=== PATIENT | female | born 1980 | race Caucasian/White ===

== ENCOUNTER 2016-10-07 21:13 | Emergency (ER) | payer BC ==
--- OUTSIDE RECORDS SUMMARY | 2016-10-07 21:50 | XMS REPORT | Continuity of Care Document ---
:1980 Author Organization [facility] [place] [address] Care Team Providers Name Role Phone Unavailable Primary Care Provider Unavailable Source Comments This disclosure is being made pursuant to the Glow program and maynot contain all information available regarding this patient.[facility] Active Allergies and Adverse Reactions Not on File Current Medications Be aware that medications may not be up to date as of this document. Alwaysverify current medications with the patient. Not on file Active Problems Not on file Social History Tobacco Use Types Packs/Day Years Used Date Never Assessed Plan of Care Health Maintenance Due Date Last Done Comments Retired-Pertussis Vaccine Adult 2001 Retired-Tetanus Vaccine Adult 2001 Pap Smear 10/08/2003 Retired-INFLUENZA VACCINE 04/01/2015 Results from Last 3 Months Not on file
--- OUTSIDE RECORDS SUMMARY | 2016-10-07 21:51 | XMS REPORT | Continuity of Care Document ---
:1980 Author Organization [facility] ([facility]) Address [address] [place] [address] Phone [phone] Care Team Providers Name Role Phone Paul Silva Primary Care Provider [phone] Source Comments This disclosure is being made pursuant to the Care Everywhere program, applicable federal and state laws, and may not contain all informaitonavailable regarding this patient.[facility] ([facility]) Active Allergies and Adverse Reactions Allergen Noted Date Severity Reactions Comments Penicillins 06/03/2014 Urticaria (Hives),Rash Sulfa (Sulfonamide Antibiotics) 06/03/2014 Urticaria (Hives),Rash Current Medications Prescription Sig. Disp. Refills Start Date End Date Status zolpiDEM 10 mg tablet Take 10 mg by mouth Active at bedtime as needed. amitriptyline 25 mg Take 25-50 mg by Active tablet mouth at bedtime. gabapentin 300 mg capsule Take 1,200 mg by Active mouth daily. buPROPion (WELLBUTRIN XL) Take 150 mg by Active 300 mg extended release mouth 2 times tablet 24 hour daily. OMEPRAZOLE (PRILOSEC PO) Take 40 mg by mouth Active daily. ferrous sulfate (Iron) Take 325 mg by Active 325 mg (65 mg iron) mouth daily. tablet loratadine 10 mg tablet Take 10 mg by mouth Active daily. CALCIUM CARBONATE/VITAMIN Take 1 Tab by mouth Active D3 (CALCIUM 600 + D,3, 2 times daily. PO) MULTIVIT WITH Take by mouth. Active CALCIUM,IRON,MIN (WOMEN'S MULTIPLE VITAMINS PO) Active Problems Problem Noted Date Mid back pain 06/04/2014 Social History Tobacco Use Types Packs/Day Years Used Date Current Every Day Smoker Cigarettes 1 Smokeless Tobacco: Never Used Last Filed Vital Signs Vital Sign Reading Time Taken Blood Pressure 115/77 06/03/2014 2:00 PM [facility] Pulse 82 06/03/2014 2:00 PM [facility] Temperature 36 C (96.8 F) 06/03/2014 2:00 PM [facility] Respiratory Rate - - Height 1.549 m (5' 0.98") 06/03/2014 2:00 PM [facility] Weight 60.918 kg (134 lb 4.8 oz) 06/03/2014 2:00 PM [facility] Body Mass Index 25.39 06/03/2014 2:00 PM [facility] Oxygen Saturation - - Plan of Care Health Maintenance Due Date Last Done Comments Hepatitis B Vaccine (1 of 3 - Primary Series) 1982 Tdap Vaccine 1993 Lipid Disorder Screening 2000 MMR Vaccine 2000 Td Vaccine 2000 Varicella Vaccine (1 of 2 - Adult - No Evidence of 2000 Immunity) Pneumococcal Vaccine (1 of 1 - PPSV23) 2001 Cervical Cancer Screening 2012 Influenza Vaccine: Seasonal (#1) 03/01/2016 Results from Last 3 Months Not on file
--- OUTSIDE RECORDS SUMMARY | 2016-10-07 21:51 | XMS REPORT | Summary of Care ---
:1980 Author Organization [facility] Address [address] [place] [address] [address] [place] [address] Care Team Providers Name Role Phone Lisha Hung Primary Care Physician Encounter Date(s): 08/18/16 - 08/18/16 [facility] [address] [place] [address] [address] [place] [address]- Discharge Diagnosis: Epigastric abdominal pain Discharge Disposition: 01 Discharged to Home or Self Care Attending Physician: MAKAYLA Mccullough Referring Physician: Doug Veliz DO Vital Signs Most recent to oldest [Reference Range]: 1 Peripheral Pulse Rate [60-100 bpm] 101 bpm *HI* (08/18/16 1:13 PM) Blood Pressure [90-130/60-90 mmHg] 106/73mmHg (08/18/16 1:13 PM) Mean Arterial Pressure, Cuff 84 mmHg (08/18/16 1:13 PM) Height/Length Measured 154.1 cm (08/18/16 1:13 PM) Height/Length Estimated 154.7 cm (08/18/16 1:13 PM) Weight Estimated 43.4 kg (08/18/16 1:13 PM) Weight Dosing 43.4 kg (08/18/16 1:13 PM) Weight Measured 43.4 kg (08/18/16 1:13 PM) BSA Measured 1.38 m2 (08/18/16 1:13 PM) BSA Estimated 1.37 m2 (08/18/16 1:13 PM) Body Mass Index Measured 18.28 kg/m2 (08/18/16 1:13 PM) Body Mass Index Estimated 18.13 kg/m2 (08/18/16 1:13 PM) Problem List Condition Effective Dates Status Health Status Informant History of depression(Confirmed) 02/13/13 Active History of endometriosis(Confirmed) 2002 Active History of gastro-esophageal reflux Active disease(Confirmed) History of migraine(Confirmed) Active Neck pain(Confirmed) Active History of ovarian cyst(Confirmed) Active (Confirmed) 03/09/04 - 12/07/04 Resolved Weakness of neck(Confirmed) Active Allergies, Adverse Reactions, Alerts Substance Reaction Severity Status penicillin Hives Active sulfa drugs Hives Active Medications Adderall 30 mg oral tablet 1 tab(s), Oral, BID, 0 Refill(s), Start Date: 07/14/16 13:25:00 SERVICE TECH/WELDER Start Date: 07/14/16 Status: Orderedalbuterol HFA 2 puff(s), Nasal, q8hr interval, PRN as needed for wheezing, Start Date: 10:30:00 CDT Start Date: 02/25/14 Stop Date: 08/18/15 Status: CompletedAleve 220 mg oral tablet 2 tab(s), Oral, BID Start Date: 02/25/14 Stop Date: 02/05/15 Status: CompletedAmbien 10 mg, Oral, HS, 0 Refill(s), Start Date: 02/25/14 14:45:00 CDT Start Date: 02/25/14 Stop Date: 08/22/15 Status: DiscontinuedCarafate 1 g oral tablet 1 tab(s), Oral, TID, with meals, # 240 tab(s), 0 Refill(s), Start Date: 9:42:00 CDT Start Date: 02/05/15 Stop Date: 10/16/15 Status: DiscontinuedCarafate 1 g oral tablet 1 tab(s), Oral, QID, on an empty stomach, # 120 tab(s), 1 Refill(s), Start Date : 08/18/16 13:33:00 SERVICE TECH/WELDER, [facility] [facility] [place] [place] Start Date: 08/18/16 Status: OrderedCeleXA 20 mg oral tablet 1 tab(s), Oral, Daily, # 90 tab(s), 0 Refill(s), Start Date: 02/05/15 9:42:00 CDT Start Date: 02/05/15 Status: OrderedClaritin 10 mg, Oral, Daily Start Date: 02/25/14 Stop Date: 08/18/15 Status: Discontinueddextroamphetamine-amphetamine 30 mg oral tablet 1 tab(s), Oral, BID, 0 Refill(s), Start Date: 06/12/15 13:47:00 SERVICE TECH/WELDER Start Date: 06/12/15 Stop Date: 12/15/15 Status: DiscontinuedEffexor XR 75 mg oral capsule, extended release 1 cap(s), Oral, Daily, 0 Refill(s), Start Date: 09/23/14 8:35:00 SERVICE TECH/WELDER Start Date: 09/23/14 Stop Date: 02/05/15 Status: Completedfamotidine 40 mg oral tablet 1 tab(s), Oral, BID, # 60 tab(s), 1 Refill(s), Start Date: 08/18/16 13:34:00 SERVICE TECH/WELDER , [facility] [place] [place] Start Date: 08/18/16 Status: OrderedFlagyl 250 mg oral tablet 1 tab(s), Oral, TID, do not drink alcohol may take with food to minimize abdominal discomfort, # 42 tab(s), 0 Refill(s), Start Date: 07/14/16 13:32:00 SERVICE TECH/WELDER, [facility] [place], [place] Start Date: 07/14/16 Stop Date: 07/28/16 Status: OrderedFlonase 50 mcg/inh nasal spray 1 spray(s), Nasal, Daily Start Date: 02/25/14 Stop Date: 06/11/15 Status: DiscontinuedFlorastor 250 mg oral capsule 2 cap(s), Oral, BID, # 56 cap(s), 0 Refill(s), Start Date: 08/21/15 14:57:00 SERVICE TECH/WELDER , Pharmacy: [facility] [id number] Start Date: 08/21/15 Stop Date: 09/15/15 Status: Completedgabapentin 300 mg oral capsule 1 cap(s), Oral, TID Start Date: 02/25/14 Stop Date: 02/05/15 Status: Completedibuprofen 600 mg oral tablet 1 tab(s), Oral, q6hr, # 16 tab(s), 2 Refill(s), Start Date: 11/02/15 9:03:00 CDT , Pharmacy: [facility] [id number] Start Date: 11/02/15 Status: OrderedLevaquin 750 mg oral tablet 1 tab(s), Oral, Daily, # 14 tab(s), 0 Refill(s), Start Date: 07/14/16 13:24:00 SERVICE TECH/WELDER Start Date: 07/14/16 Stop Date: 07/28/16 Status: OrderedLORazepam 0.5 mg oral tablet 2 tab(s), Oral, HS, 0 Refill(s), Start Date: 07/14/16 13:26:00 SERVICE TECH/WELDER Start Date: 07/14/16 Status: Orderedmethadone 10 mg oral tablet 1 tab(s), Oral, q12hr, # 14 tab(s), 0 Refill(s), Start Date: 06/27/15 9:27:00 SERVICE TECH/WELDER, other reason (Rx) Start Date: 06/27/15 Stop Date: 08/18/15 Status: Completedmetoclopramide 10 mg oral tablet 1 tab(s), Oral, QID, # 120 tab(s), 0 Refill(s), Start Date: 08/14/15 15:28:00 SERVICE TECH/WELDER Start Date: 08/14/15 Stop Date: 08/21/15 Status: DiscontinuedmetroNIDAZOLE 500 mg oral tablet 1 tab(s), Oral, TID, 0 Refill(s), Start Date: 08/18/15 17:01:00 SERVICE TECH/WELDER Start Date: 08/18/15 Stop Date: 08/21/15 Status: DiscontinuedMultiple Vitamins oral tablet 1 tab(s), Oral, Daily, with food Start Date: 02/25/14 Stop Date: 02/05/15 Status: CompletedNorco 5 mg-325 mg oral tablet See Instructions, 1tab(s) Oral q4-6hr interval prn pain. WRITTEN RX, PT TO MORTGAGE PROCESSOR//VOLODYMYRP, # 90 tab(s), 0 Refill(s), Start Date: 07/28/15 9:12:00 SERVICE TECH/WELDER Start Date: 07/28/15 Stop Date: 08/18/15 Status: Completednortriptyline 10 mg oral capsule 2 cap(s), Oral, HS Start Date: 02/25/14 Stop Date: 02/05/15 Status: Completedomeprazole 40 mg oral delayed release capsule 1 cap(s), Oral, Daily, before a meal Start Date: 02/25/14 Stop Date: 08/18/15 Status: CompletedOrtho Tri-Cyclen oral tablet 1 tab(s), Oral, Daily, # 28 tab(s), 11 Refill(s), Start Date: 09/23/14 8:50:32 SERVICE TECH/WELDER, Pharmacy: [id number] Start Date: 09/23/14 Stop Date: 10/28/15 Status: DiscontinuedOrtho Tri-Cyclen oral tablet 1 tab(s), Oral, Daily, # 28 tab(s), 6 Refill(s), [id number] Start Date: 02/25/14 Stop Date: 09/23/14 Status: DiscontinuedoxyCODONE-acetaminophen 5 mg-325 mg oral tablet See Instructions, 1 tab(s) Oral q4-6hr interval Max 7 per day, # 90 tab(s), 0 Refill(s), Start Date: 06/27/15 9:28:00 SERVICE TECH/WELDER, other reason (Rx) Start Date: 06/27/15 Stop Date: 07/28/15 Status: DiscontinuedPercocet 10/325 1 tab(s), Oral, q6hr interval, 0 Refill(s) Start Date: 06/11/15 Stop Date: 06/27/15 Status: DiscontinuedPercocet 5/325 tab(s), Oral, q6hr interval, 0 Refill(s) Start Date: 02/25/14 Stop Date: 06/11/15 Status: DiscontinuedPercocet 5/325 tab(s), Oral, q6hr interval, 0 Refill(s) Start Date: 02/25/14 Stop Date: 02/25/14 Status: DiscontinuedPercocet 5/325 1 tab(s), Oral, QID, 0 Refill(s), Start Date: 08/18/15 16:59:00 SERVICE TECH/WELDER Start Date: 08/18/15 Stop Date: 09/15/15 Status: CompletedPercocet 5/325 oral tablet 1 tab(s), Oral, QID, # 90 tab(s), 0 Refill(s), Start Date: 09/09/15 11:26:00 SERVICE TECH/WELDER , other reason (Rx) Start Date: 09/09/15 Stop Date: 09/26/15 Status: CompletedPercocet 5/325 oral tablet 1 tab(s), Oral, q6hr interval, PRN pain moderate 4-7, # 24 tab(s), 0 Refill(s), Start Date: 11/05/15 11:38:54 CDT, Pharmacy: [facility] [id number] Start Date: 11/05/15 Stop Date: 11/09/15 Status: CompletedPercocet 5/325 oral tablet 1 tab(s), Oral, QID, Written Rx for pt to pickle maker//jmp,cage unloader, # 90 tab(s), 0 Refill(s), Start Date: 09/26/15 12:54:36 SERVICE TECH/WELDER Start Date: 09/26/15 Stop Date: 10/16/15 Status: DiscontinuedPercocet 5/325 oral tablet 1 tab(s), Oral, q6hr interval, PRN pain moderate 4-7, # 16 tab(s), 0 Refill(s), Start Date: 11/02/15 9:03:00 CDT, Pharmacy: [facility] [id number] Start Date: 11/02/15 Stop Date: 11/05/15 Status: DiscontinuedPhenergan 25 mg oral tablet 1 tab(s), Oral, q4hr, PRN for nausea/vomiting, # 20 tab(s), 0 Refill(s), Start Date: 08/21/15 14:58:00 SERVICE TECH/WELDER, Pharmacy: [facility] [id number] Start Date: 08/21/15 Stop Date: 09/15/15 Status: Completedpotassium chloride 10 mEq oral capsule, extended release 1 cap(s), Oral, BID, # 180 cap(s), 0 Refill(s), Start Date: 08/18/15 17:01:00 SERVICE TECH/WELDER Start Date: 08/18/15 Stop Date: 09/15/15 Status: Completedpotassium chloride 10 mEq oral tablet, extended release 1 tab(s), Oral, BID, # 180 tab(s), 0 Refill(s), Start Date: 08/18/15 21:44:00 SERVICE TECH/WELDER Start Date: 08/18/15 Stop Date: 08/21/15 Status: DiscontinuedSingulair qPM, 0 Refill(s) Start Date: 02/25/14 Stop Date: 06/11/15 Status: DiscontinuedSuprep Bowel Prep Kit oral liquid 1 bottles, Oral, BID, Mix 1 btl to 16oz water and drink. Next morning; repeat use second btl. Complete at least 1 hr before colonscopy., # 1 kit(s), 0 Refill (s), Start Date: 08/14/15 15:51:00 SERVICE TECH/WELDER, Pharmacy: [facility] [id number] Start Date: 08/14/15 Stop Date: 08/18/15 Status: CompletedtraZODone 50 mg oral tablet 1 tab(s), Oral, HS, # 60 tab(s), 1 Refill(s), Pharmacy: [id number] Start Date: 11/29/13 Stop Date: 02/05/15 Status: CompletedValium 10 mg oral tablet See Instructions, PRN for anxiety, 1 tab(s) Oral 30 minutes prior to procdure, # 1 tab(s), 0 Refill(s), Start Date: 02/04/15 15:17:00 CDT, called to pharmacy ( Rx) Start Date: 02/04/15 Stop Date: 06/11/15 Status: Completedvancomycin 125 mg oral capsule 1 cap(s), Oral, QID, # 40 cap(s), 0 Refill(s), Start Date: 08/21/15 14:57:00 SERVICE TECH/WELDER , Pharmacy: [facility] [id number] Start Date: 08/21/15 Stop Date: 08/22/15 Status: Discontinuedvancomycin 125 mg oral capsule 1 cap(s), Oral, q6hr, # 40 cap(s), 0 Refill(s), Start Date: 08/21/15 10:49:00 SERVICE TECH/WELDER, Pharmacy: [facility] [id number] Start Date: 08/21/15 Stop Date: 09/15/15 Status: CompletedVentolin HFA 2 puff(s), Inhale, q6hr interval, 0 Refill(s), Start Date: 07/14/16 13:27:00 SERVICE TECH/WELDER Start Date: 07/14/16 Status: OrderedVyvanse 70 mg, Oral, qAM, 0 Refill(s), Start Date: 05/27/15 10:27:00 CDT Start Date: 05/27/15 Stop Date: 08/18/15 Status: DiscontinuedVyvanse 40 mg oral capsule 1 cap(s), Oral, qAM, 0 Refill(s), Start Date: 07/14/16 13:24:00 SERVICE TECH/WELDER Start Date: 07/14/16 Status: OrderedWellbutrin XL 150 mg/24 hours oral tablet, extended release tab(s), Oral, q24hr interval, 0 Refill(s) Start Date: 02/25/14 Stop Date: 02/05/15 Status: CompletedZofran 4 mg oral tablet 1 tab(s), Oral, q8hr, PRN nausea/vomiting, # 10 tab(s), 1 Refill(s), Start Date : 09/25/15 13:09:00 SERVICE TECH/WELDER, Pharmacy: [facility] [id number] Start Date: 09/25/15 Stop Date: 10/16/15 Status: DiscontinuedZofran 4 mg oral tablet 1 tab(s), Oral, q8hr interval, PRN nausea/vomiting, # 8 Tab-Dis, 0 Refill(s), Start Date: 09/15/15 11:45:00 SERVICE TECH/WELDER, Pharmacy: [facility] [id number] Start Date: 09/15/15 Stop Date: 10/16/15 Status: Discontinued Results No data available for this section Immunizations Given and Recorded Vaccine Date Status Refusal Reason human papillomavirus vaccine 08/21/07 Recorded human papillomavirus vaccine 04/18/07 Recorded human papillomavirus vaccine 02/15/07 Recorded influenza virus vaccine, inactivated 06/28/09 Recorded Procedures Procedure Date Related Diagnosis Body Site Hysterectomy Abdominal Total With BSO (SCIP)1 10/31/15 Colonoscopy2 09/18/15 Esophagogastroduodenoscopy3 08/19/15 Fusion Thoracic Posterior (SCIP)4 06/25/15 Implantation of neurostimulator in spine5 09/09/14 Arthroscopy of shoulder (LEFT) 09/2012 Appendectomy 08/2012 Colposcopy6 07/31/12 Breast augmentation 11/10/10 Tonsillectomy and adenoidectomy 2007 Diagnostic laparoscopy 05/19/07 Colposcopy7 04/28/05 Extraction of wisdom tooth 01/2005 section 12/07/04 Laparoscopy with ablation (endometriosis) 2001 1auto-populated from documented surgical [id number] from documented surgical [id number] from documented surgical [id number] from documented surgical [id number] A) CERVICAL BIOPSY: 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 B) ENDOCERVIX, BIOPSY: ENOD AND ECTOCERVICAL TISSUE WITH CHRONIC CERVICITIS, FRAGMENTS OF SMALL ENDOCERVICAL POLYP, AND FRAGEMENTS OF LOWER UTERINE SEGMENT ENDOMETRIUM COMMENTS: DIAGNOSTIC DYSPLASIA IS NOT IDENTIFIED, AND FOCAL MILD KOILOCYSTIC CHANGE IS NOTED ONLY IN THE CERVICAL BIOPSY. ADDITONAL FINDINGSINCLUDE FOCAL AREAS OF IMMATURE SQUAMOUS METAPLASIA Social History No data available for this section Assessment and Plan No data available for this section
--- OUTSIDE RECORDS SUMMARY | 2016-10-07 21:52 | XMS REPORT | Summary of Care ---
:1980 Author Organization [facility] Address [address] [place] [address] Care Team Providers Name Role Phone Shannon Jackson Primary Care Physician Encounter Date(s): 09/20/16 - 09/20/16 [facility], [address] [place], [place] [address] Discharge Disposition: 01 Discharged to Home or Self Care Attending Physician: MAKAYLA Hargrove Referring Physician: MAKAYLA Hargrove Vital Signs Most recent to oldest [Reference Range]: 1 Temperature Tympanic [36.6-38.1 DegC] 36.9 DegC (09/20/16 8:16 AM) Temperature C to F 98.4 (09/20/16 8:16 AM) Peripheral Pulse Rate [60-100 bpm] 110 bpm *HI* (09/20/16 8:16 AM) SpO2 [90-100 %] 95 % (09/20/16 8:16 AM) SpO2 Location Right hand (09/20/16 8:16 AM) Blood Pressure [90-130/60-90 mmHg] 118/72mmHg (09/20/16 8:16 AM) Mean Arterial Pressure, Cuff 87 mmHg (09/20/16 8:16 AM) Most recent to oldest [Reference Range]: 1 Height/Length Measured 154.1 cm (09/20/16 8:16 AM) Weight Dosing 44.70 kg1 (09/20/16 8:20 AM) Weight Measured 44.7 kg (09/20/16 8:16 AM) BSA Measured 1.39 m2 (09/20/16 8:16 AM) Body Mass Index Measured 18.82 kg/m2 (09/20/16 8:16 AM) 1Result Comment: This result was because the dosing weight was either not entered or it is>30 days old. This result is based off: Weight Measured September 20, 2016 08:16:00 PLUMBING ASSEMBLER by Helen Nieto Problem List Condition Effective Dates Status Health Status Informant History of depression(Confirmed) 02/13/13 Active History of endometriosis(Confirmed) 2001 Active History of gastro-esophageal reflux Active disease(Confirmed) History of migraine(Confirmed) Active Neck pain(Confirmed) Active History of ovarian cyst(Confirmed) Active (Confirmed) 03/09/04 - 12/07/04 Resolved Weakness of neck(Confirmed) Active Allergies, Adverse Reactions, Alerts Substance Reaction Severity Status penicillin Hives Active sulfa drugs Hives Active Medications Adderall 30 mg oral tablet 1 tab(s), Oral, BID, 0 Refill(s), Start Date: 07/14/16 13:25:00 PLUMBING ASSEMBLER Start Date: 07/14/16 Status: Orderedalbuterol HFA 2 [...] tab(s), 0 Refill(s), Start Date: 9:42:00 CDT Special Instructions: with meals Start Date: 02/05/15 Stop Date: 10/16/15 Status: DiscontinuedCarafate 1 g oral tablet 1 tab(s), Oral, QID, on an empty stomach, # 120 tab(s), 1 Refill(s), Start Date : 08/18/16 13:33:00 PLUMBING ASSEMBLER, Pharmacy: [facility] [place], [place] Special Instructions: on an empty stomach Start Date: 08/18/16 Status: OrderedCeleXA 20 mg oral tablet 1 tab(s), Oral, Daily, # 90 tab(s), 0 Refill(s), Start Date: 02/05/15 9:42:00 CDT Start Date: 02/05/15 Status: OrderedClaritin 10 mg, Oral, Daily Start Date: 02/25/14 Stop Date: 08/18/15 Status: Discontinueddextroamphetamine-amphetamine 30 mg oral tablet 1 tab(s), Oral, BID, 0 Refill(s), Start Date: 06/12/15 13:47:00 PLUMBING ASSEMBLER Start Date: 06/12/15 Stop Date: 12/15/15 Status: Discontinueddicyclomine 20 mg oral tablet 1 tab(s), Oral, QID, Can be taken 30 to 60 minutes before meals, # 60 tab(s), 0 Refill(s), Start Date: 09/17/16 13:44:00 PLUMBING ASSEMBLER, [facility] [place] Special Instructions: Can be taken 30 to 60 minutes before meals Start Date: 09/17/16 Status: OrderedEffexor XR 75 mg oral capsule, extended release 1 cap(s), Oral, Daily, 0 Refill(s), Start Date: 09/23/14 8:35:00 PLUMBING ASSEMBLER Start Date: 09/23/14 Stop Date: 02/05/15 Status: Completedfamotidine 40 mg oral tablet 1 tab(s), Oral, BID, # 60 tab(s), 1 Refill(s), Start Date: 08/18/16 13:34:00 PLUMBING ASSEMBLER , [place]acy: [place] Start Date: 08/18/16 Stop Date: 09/20/16 Status: DiscontinuedFlagyl 250 mg oral tablet 1 tab(s), Oral, TID, do not drink alcohol may take with food to minimize abdominal discomfort, # 42 tab(s), 0 Refill(s), Start Date: 07/14/16 13:32:00 PLUMBING ASSEMBLER, Pharmacy: [facility] [place], [place] Special Instructions: do not drink alcohol may take with food to minimize abdominal discomfort Start Date: 07/14/16 Stop Date: 09/17/16 Status: CompletedFlonase 50 mcg/inh nasal spray 1 spray(s), Nasal, Daily Start Date: 02/25/14 Stop Date: 06/11/15 Status: DiscontinuedFlorastor 250 mg oral capsule 2 cap(s), Oral, BID, # 56 cap(s), 0 Refill(s), Start Date: 08/21/15 14:57:00 PLUMBING ASSEMBLER , Pharmacy: [facility] [id number] Start Date: 08/21/15 Stop Date: 09/15/15 Status: Completedgabapentin 300 mg oral capsule 1 cap(s), Oral, TID Start Date: 02/25/14 Stop Date: 02/05/15 Status: Completedibuprofen 600 mg oral tablet 1 tab(s), Oral, q6hr, # 16 tab(s), 2 Refill(s), Start Date: 11/02/15 9:03:00 CDT , Pharmacy: [facility] [id number] Start Date: 11/02/15 Status: OrderedLevaquin 750 mg oral tablet 1 tab(s), Oral, Daily, # 14 tab(s), 0 Refill(s), Start Date: 07/14/16 13:24:00 PLUMBING ASSEMBLER Start Date: 07/14/16 Stop Date: 09/17/16 Status: CompletedLORazepam 0.5 mg oral tablet 2 tab(s), Oral, HS, 0 Refill(s), Start Date: 07/14/16 13:26:00 PLUMBING ASSEMBLER Start Date: 07/14/16 Status: Orderedmethadone 10 mg oral tablet 1 tab(s), Oral, q12hr, # 14 tab(s), 0 Refill(s), Start Date: 06/27/15 9:27:00 PLUMBING ASSEMBLER, other reason (Rx) Start Date: 06/27/15 Stop Date: 08/18/15 Status: Completedmetoclopramide 10 mg oral tablet 1 tab(s), Oral, QID, # 120 tab(s), 0 Refill(s), Start Date: 08/14/15 15:28:00 PLUMBING ASSEMBLER Start Date: 08/14/15 Stop Date: 08/21/15 Status: DiscontinuedmetroNIDAZOLE 500 mg oral tablet 1 tab(s), Oral, TID, 0 Refill(s), Start Date: 08/18/15 17:01:00 PLUMBING ASSEMBLER Start Date: 08/18/15 Stop Date: 08/21/15 Status: DiscontinuedMultiple Vitamins oral tablet 1 tab(s), Oral, Daily, with food Special Instructions: with food Start Date: 02/25/14 Stop Date: 02/05/15 Status: CompletedNorco 5 mg-325 mg oral tablet See Instructions, 1tab(s) Oral q4-6hr interval prn pain. WRITTEN RX, PT TO HOG HANDLER//JMP, # 90 tab(s), 0 Refill(s), Start Date: 07/28/15 9:12:00 PLUMBING ASSEMBLER Special Instructions: 1tab(s) Oral q4-6hr interval prn pain. WRITTEN RX, PT TO HOG HANDLER//JMP Start Date: 07/28/15 Stop Date: 08/18/15 Status: Completednortriptyline 10 mg oral capsule 2 cap(s), Oral, HS Start Date: 02/25/14 Stop Date: 02/05/15 Status: Completedomeprazole 40 mg oral delayed release capsule 1 cap(s), Oral, Daily, # 30 cap(s), 1 Refill(s), Start Date: 09/17/16 13:43:00 PLUMBING ASSEMBLER, Pharmacy: [place], [place] Start Date: 09/17/16 Status: Orderedomeprazole 40 mg oral delayed release capsule 1 cap(s), Oral, Daily, before a meal Special Instructions: before a meal Start Date: 02/25/14 Stop Date: 08/18/15 Status: CompletedOrtho Tri-Cyclen oral tablet 1 tab(s), Oral, Daily, # 28 tab(s), 11 Refill(s), Start Date: 09/23/14 8:50:32 PLUMBING ASSEMBLER, Pharmacy: [id number] Start Date: 09/23/14 Stop Date: 10/28/15 Status: DiscontinuedOrtho Tri-Cyclen oral tablet 1 tab(s), Oral, Daily, # 28 tab(s), 6 Refill(s), Pharmacy: [id number] Start Date: 02/25/14 Stop Date: 09/23/14 Status: DiscontinuedoxyCODONE-acetaminophen 5 mg-325 mg oral tablet See Instructions, 1 tab(s) Oral q4-6hr interval Max 7 per day, # 90 tab(s), 0 Refill(s), Start Date: 06/27/15 9:28:00 PLUMBING ASSEMBLER, other reason (Rx) Special Instructions: 1 tab(s) Oral q4-6hr interval Max 7 per day Start Date: 06/27/15 Stop Date: 07/28/15 Status: [...] QID, 0 Refill(s), Start Date: 08/18/15 16:59:00 PLUMBING ASSEMBLER Start Date: 08/18/15 Stop Date: 09/15/15 Status: CompletedPercocet 5/325 oral tablet 1 tab(s), Oral, QID, # 90 tab(s), 0 Refill(s), Start Date: 09/09/15 11:26:00 PLUMBING ASSEMBLER , other reason (Rx) Start Date: 09/09/15 Stop Date: 09/26/15 Status: CompletedPercocet 5/325 oral tablet 1 tab(s), Oral, q6hr interval, PRN pain moderate 4-7, # 24 tab(s), 0 Refill(s), Start Date: 11/05/15 11:38:54 CDT, Pharmacy: [id number] Start Date: 11/05/15 Stop Date: 11/09/15 Status: CompletedPercocet 5/325 oral tablet 1 tab(s), Oral, QID, Written Rx for pt to black pickler//jmp,business librarian, # 90 tab(s), 0 Refill(s), Start Date: 09/26/15 12:54:36 PLUMBING ASSEMBLER Special Instructions: Written Rx for pt to black pickler//jmp,business librarian Start Date: 09/26/15 Stop Date: 10/16/15 Status: DiscontinuedPercocet 5/325 oral tablet 1 tab(s), Oral, q6hr interval, PRN pain moderate 4-7, # 16 tab(s), 0 Refill(s), Start Date: 11/02/15 9:03:00 CDT, Pharmacy: [facility] [id number] Start Date: 11/02/15 Stop Date: 11/05/15 Status: DiscontinuedPhenergan 25 mg oral tablet 1 tab(s), Oral, q4hr, PRN for nausea/vomiting, # 20 tab(s), 0 Refill(s), Start Date: 08/21/15 14:58:00 PLUMBING ASSEMBLER, Pharmacy: [facility] [id number] Start Date: 08/21/15 Stop Date: 09/15/15 Status: Completedpotassium chloride 10 mEq oral capsule, extended release 1 cap(s), Oral, BID, # 180 cap(s), 0 Refill(s), Start Date: 08/18/15 17:01:00 PLUMBING ASSEMBLER Start Date: 08/18/15 Stop Date: 09/15/15 Status: Completedpotassium chloride 10 mEq oral tablet, extended release 1 tab(s), Oral, BID, # 180 tab(s), 0 Refill(s), Start Date: 08/18/15 21:44:00 PLUMBING ASSEMBLER Start Date: 08/18/15 Stop Date: 08/21/15 Status: DiscontinuedReadi-Cat 2 oral suspension See Instructions, Oral ONETIME, # 2 bottles, 0 Refill(s), Start Date: 09/17/16 13:57:00 PLUMBING ASSEMBLER, Pharmacy: [email or web address] Special Instructions: Oral ONETIME Start Date: 09/17/16 Status: OrderedSingulair qPM, 0 Refill(s) Start Date: 02/25/14 Stop Date: 06/11/15 Status: DiscontinuedSuprep Bowel Prep Kit oral liquid 1 bottles, Oral, BID, Mix 1 btl to 16oz water and drink. Next morning; repeat use second btl. Complete at least 1 hr before colonscopy., # 1 kit(s), 0 Refill (s), Start Date: 08/14/15 15:51:00 PLUMBING ASSEMBLER, Pharmacy: [facility] [id number] Special Instructions: Mix 1 btl to 16oz water and drink. Next morning; repeat use second btl. Complete at least 1 hr before colonscopy. Start Date: 08/14/15 Stop Date: 08/18/15 Status: CompletedtraZODone 50 mg oral tablet 1 tab(s), Oral, HS, # 60 tab(s), 1 Refill(s), Pharmacy: [id number] Start Date: 11/29/13 Stop Date: 02/05/15 Status: CompletedValium 10 mg oral tablet See Instructions, PRN for anxiety, 1 tab(s) Oral 30 minutes prior to procdure, # 1 tab(s), 0 Refill(s), Start Date: 02/04/15 15:17:00 CDT, called to pharmacy ( Rx) Special Instructions: 1 tab(s) Oral 30 minutes prior to procdure Start Date: 02/04/15 Stop Date: 06/11/15 Status: Completedvancomycin 125 mg oral capsule 1 cap(s), Oral, QID, # 40 cap(s), 0 Refill(s), Start Date: 08/21/15 14:57:00 PLUMBING ASSEMBLER , Pharmacy: [facility] [id number] Start Date: 08/21/15 Stop Date: 08/22/15 Status: Discontinuedvancomycin 125 mg oral capsule 1 cap(s), Oral, q6hr, # 40 cap(s), 0 Refill(s), Start Date: 08/21/15 10:49:00 PLUMBING ASSEMBLER, Pharmacy: [facility] [id number] Start Date: 08/21/15 Stop Date: 09/15/15 Status: CompletedVentolin HFA 2 puff(s), Inhale, q6hr interval, 0 Refill(s), Start Date: 07/14/16 13:27:00 PLUMBING ASSEMBLER Start Date: 07/14/16 Status: OrderedVyvanse 70 mg, Oral, qAM, 0 Refill(s), Start Date: 05/27/15 10:27:00 CDT Start Date: 05/27/15 Stop Date: 08/18/15 Status: DiscontinuedVyvanse 40 mg oral capsule 1 cap(s), Oral, qAM, 0 Refill(s), Start Date: 07/14/16 13:24:00 PLUMBING ASSEMBLER Start Date: 07/14/16 Status: OrderedWellbutrin XL 150 mg/24 hours oral tablet, extended release tab(s), Oral, q24hr interval, 0 Refill(s) Start Date: 02/25/14 Stop Date: 02/05/15 Status: CompletedZofran 4 mg oral tablet 1 tab(s), Oral, q8hr, PRN nausea/vomiting, # 10 tab(s), 1 Refill(s), Start Date : 09/25/15 13:09:00 PLUMBING ASSEMBLER, Pharmacy: [facility] [id number] Start Date: 09/25/15 Stop Date: 10/16/15 Status: DiscontinuedZofran 4 mg oral tablet 1 tab(s), Oral, q8hr interval, PRN nausea/vomiting, # 8 Tab-Dis, 0 Refill(s), Start Date: 09/15/15 11:45:00 PLUMBING ASSEMBLER, Pharmacy: [facility] [id number] Start Date: 09/15/15 Stop Date: 10/16/15 Status: Discontinued Results Patient Viewable Results Most recent to oldest [Reference Range]: 1 Urine Appearance Urine Dipstick Clear (09/20/16 8:28 AM) Urine Color Urine Dipstick Straw (09/20/16 8:28 AM) Specific [place] Urine Dipstick 1.010 (09/20/16 8:28 AM) Bilirubin Urine Dipstick Negative (09/20/16 8:28 AM) pH Urine Dipstick 5 (09/20/16 8:28 AM) Urobilinogen Urine Dipstick 0.2 mg/dl (09/20/16 8:28 AM) Blood Urine Dipstick Negative (09/20/16 8:28 AM) Glucose Urine Dipstick Negative (09/20/16 8:28 AM) Ketones Urine Dipstick Negative (09/20/16 8:28 AM) Protein Urine Dipstick Negative (09/20/16 8:28 AM) Nitrite Urine Dipstick Negative (09/20/16 8:28 AM) Leukocytes Urine Dipstick Negative (09/20/16 8:28 AM) Immunizations Vaccine Date Refusal Reason human papillomavirus vaccine 08/21/07 human papillomavirus vaccine 04/18/07 human papillomavirus vaccine 02/15/07 influenza virus vaccine, inactivated 06/28/09 Procedures Procedure Date Related Diagnosis Body Site [...] ablation (endometriosis) 2001 1auto-populated from documented surgical [id number] from documented surgical [id number] from documented surgical [id number] from documented surgical [id number] A) CERVICAL BIOPSY: MILD DYSPLASIA WITH HUMAN [...]
--- OUTSIDE RECORDS SUMMARY | 2016-10-07 21:52 | XMS REPORT | Summary of Care ---
:1980 Author Organization [facility] Address [address] [place] [id number]- Care Team Providers Name Role Phone SebastienScot ricevadim Vaughan Primary Care Physician Encounter Date(s): 08/26/16 - 08/26/[address] [address]- [facility] Discharge Disposition: Discharged to Home or Self Care Attending Physician: MAKAYLA Mccullough Admitting Physician: MAKAYLA Mccullough Vital Signs No data available for this section Problem List Condition Effective Dates Status Health [...] BID, 0 Refill(s), Start Date: 07/14/16 13:25:00 CORONER'S JUROR Start Date: 07/14/16 Status: Orderedalbuterol HFA 2 [...] 1 Refill(s), Start Date : 08/18/16 13:33:00 CORONER'S JUROR, Pharmacy: [facility] [place], [place] Start Date: 08/18/16 Status: OrderedCeleXA 20 mg oral tablet 1 tab(s), Oral, Daily, # 90 tab(s), 0 Refill(s), Start Date: 02/05/15 9:42:00 CDT Start Date: 02/05/15 Status: OrderedClaritin 10 mg, Oral, Daily Start Date: 02/25/14 Stop Date: 08/18/15 Status: Discontinueddextroamphetamine-amphetamine 30 mg oral tablet 1 tab(s), Oral, BID, 0 Refill(s), Start Date: 06/12/15 13:47:00 CORONER'S JUROR Start Date: 06/12/15 Stop Date: 12/15/15 Status: DiscontinuedEffexor XR 75 mg oral capsule, extended release 1 cap(s), Oral, Daily, 0 Refill(s), Start Date: 09/23/14 8:35:00 CORONER'S JUROR Start Date: 09/23/14 Stop Date: 02/05/15 Status: Completedfamotidine 40 mg oral tablet 1 tab(s), Oral, BID, # 60 tab(s), 1 Refill(s), Start Date: 08/18/16 13:34:00 CORONER'S JUROR , Pharmacy: [facility] [place], [place] Start Date: 08/18/16 Status: OrderedFlagyl 250 mg oral tablet 1 tab(s), Oral, TID, do not drink alcohol may take with food to minimize abdominal discomfort, # 42 tab(s), 0 Refill(s), Start Date: 07/14/16 13:32:00 CORONER'S JUROR, [place] [facility] [place] Start Date: 07/14/16 Stop Date: 07/28/16 Status: OrderedFlonase 50 mcg/inh nasal spray 1 spray(s), Nasal, Daily Start Date: 02/25/14 Stop Date: 06/11/15 Status: DiscontinuedFlorastor 250 mg oral capsule 2 cap(s), Oral, BID, # 56 cap(s), 0 Refill(s), Start Date: 08/21/15 14:57:00 CORONER'S JUROR , Pharmacy: [facility] [id number] Start Date: 08/21/15 Stop Date: 09/15/15 Status: Completedgabapentin 300 mg oral capsule 1 cap(s), Oral, TID Start Date: 02/25/14 Stop Date: 02/05/15 Status: Completedibuprofen 600 mg oral tablet 1 tab(s), Oral, q6hr, # 16 tab(s), 2 Refill(s), Start Date: 11/02/15 9:03:00 CDT , [facility] [id number] Start Date: 11/02/15 Status: OrderedLevaquin 750 mg oral tablet 1 tab(s), Oral, Daily, # 14 tab(s), 0 Refill(s), Start Date: 07/14/16 13:24:00 CORONER'S JUROR Start Date: 07/14/16 Stop Date: 07/28/16 Status: OrderedLORazepam 0.5 mg oral tablet 2 tab(s), Oral, HS, 0 Refill(s), Start Date: 07/14/16 13:26:00 CORONER'S JUROR Start Date: 07/14/16 Status: Orderedmethadone 10 mg oral tablet 1 tab(s), Oral, q12hr, # 14 tab(s), 0 Refill(s), Start Date: 06/27/15 9:27:00 CORONER'S JUROR, other reason (Rx) Start Date: 06/27/15 Stop Date: 08/18/15 Status: Completedmetoclopramide 10 mg oral tablet 1 tab(s), Oral, QID, # 120 tab(s), 0 Refill(s), Start Date: 08/14/15 15:28:00 CORONER'S JUROR Start Date: 08/14/15 Stop Date: 08/21/15 Status: DiscontinuedmetroNIDAZOLE 500 mg oral tablet 1 tab(s), Oral, TID, 0 Refill(s), Start Date: 08/18/15 17:01:00 CORONER'S JUROR Start Date: 08/18/15 Stop Date: 08/21/15 Status: DiscontinuedMultiple Vitamins oral tablet 1 tab(s), Oral, Daily, with food Start Date: 02/25/14 Stop Date: 02/05/15 Status: CompletedNorco 5 mg-325 mg oral tablet See Instructions, 1tab(s) Oral q4-6hr interval prn pain. WRITTEN RX, PT TO FORMAL WAITER/WAITRESS//JMP, # 90 tab(s), 0 Refill(s), Start Date: 07/28/15 9:12:00 CORONER'S JUROR Start Date: 07/28/15 Stop Date: 08/18/15 Status: Completednortriptyline 10 mg oral capsule 2 cap(s), Oral, HS Start Date: 02/25/14 Stop Date: 02/05/15 Status: Completedomeprazole 40 mg oral delayed release capsule 1 cap(s), Oral, Daily, before a meal Start Date: 02/25/14 Stop Date: 08/18/15 Status: CompletedOrtho Tri-Cyclen oral tablet 1 tab(s), Oral, Daily, # 28 tab(s), 11 Refill(s), Start Date: 09/23/14 8:50:32 CORONER'S JUROR, Pharmacy: [id number] Start Date: 09/23/14 Stop Date: 10/28/15 Status: DiscontinuedOrtho Tri-Cyclen oral tablet 1 tab(s), Oral, Daily, # 28 tab(s), 6 Refill(s), Pharmacy: [id number] Start Date: 02/25/14 Stop Date: 09/23/14 Status: DiscontinuedoxyCODONE-acetaminophen 5 mg-325 mg oral tablet See Instructions, 1 tab(s) Oral q4-6hr interval Max 7 per day, # 90 tab(s), 0 Refill(s), Start Date: 06/27/15 9:28:00 CORONER'S JUROR, other reason (Rx) Start Date: 06/27/15 Stop [...] QID, 0 Refill(s), Start Date: 08/18/15 16:59:00 CORONER'S JUROR Start Date: 08/18/15 Stop Date: 09/15/15 Status: CompletedPercocet 5/325 oral tablet 1 tab(s), Oral, QID, # 90 tab(s), 0 Refill(s), Start Date: 09/09/15 11:26:00 CORONER'S JUROR , other reason (Rx) Start Date: 09/09/15 Stop Date: 09/26/15 Status: CompletedPercocet 5/325 oral tablet 1 tab(s), Oral, q6hr interval, PRN pain moderate 4-7, # 24 tab(s), 0 Refill(s), Start Date: 11/05/15 11:38:54 CDT, Pharmacy: [facility] [id number] Start Date: 11/05/15 Stop Date: 11/09/15 Status: CompletedPercocet 5/325 oral tablet 1 tab(s), Oral, QID, Written Rx for pt to greens picker//jmp,area operations manager, # 90 tab(s), 0 Refill(s), Start Date: 09/26/15 12:54:36 CORONER'S JUROR Start Date: 09/26/15 Stop Date: 10/16/15 Status: DiscontinuedPercocet 5/325 oral tablet 1 tab(s), Oral, q6hr interval, PRN pain moderate 4-7, # 16 tab(s), 0 Refill(s), Start Date: 11/02/15 9:03:00 CDT, Pharmacy: [id number] Start Date: 11/02/15 Stop Date: 11/05/15 Status: DiscontinuedPhenergan 25 mg oral tablet 1 tab(s), Oral, q4hr, PRN for nausea/vomiting, # 20 tab(s), 0 Refill(s), Start Date: 08/21/15 14:58:00 CORONER'S JUROR, Pharmacy: [id number] Start Date: 08/21/15 Stop Date: 09/15/15 Status: Completedpotassium chloride 10 mEq oral capsule, extended release 1 cap(s), Oral, BID, # 180 cap(s), 0 Refill(s), Start Date: 08/18/15 17:01:00 CORONER'S JUROR Start Date: 08/18/15 Stop Date: 09/15/15 Status: Completedpotassium chloride 10 mEq oral tablet, extended release 1 tab(s), Oral, BID, # 180 tab(s), 0 Refill(s), Start Date: 08/18/15 21:44:00 CORONER'S JUROR Start Date: 08/18/15 Stop Date: 08/21/15 Status: DiscontinuedSingulair qPM, 0 Refill(s) Start Date: 02/25/14 Stop Date: 06/11/15 Status: DiscontinuedSuprep Bowel Prep Kit oral liquid 1 bottles, Oral, BID, Mix 1 btl to 16oz water and drink. Next morning; repeat use second btl. Complete at least 1 hr before colonscopy., # 1 kit(s), 0 Refill (s), Start Date: 08/14/15 15:51:00 CORONER'S JUROR, Pharmacy: [id number] Start Date: 08/14/15 Stop Date: 08/18/15 Status: CompletedtraZODone 50 mg oral tablet 1 tab(s), Oral, HS, # 60 tab(s), 1 Refill(s), Pharmacy: [id number] Start Date: 11/29/13 Stop [...] cap(s), 0 Refill(s), Start Date: 08/21/15 14:57:00 CORONER'S JUROR , Pharmacy: [id number] Start Date: 08/21/15 Stop Date: 08/22/15 Status: Discontinuedvancomycin 125 mg oral capsule 1 cap(s), Oral, q6hr, # 40 cap(s), 0 Refill(s), Start Date: 08/21/15 10:49:00 CORONER'S JUROR, Pharmacy: [id number] Start Date: 08/21/15 Stop Date: 09/15/15 Status: CompletedVentolin HFA 2 puff(s), Inhale, q6hr interval, 0 Refill(s), Start Date: 07/14/16 13:27:00 CORONER'S JUROR Start Date: 07/14/16 Status: OrderedVyvanse 70 mg, Oral, qAM, 0 Refill(s), Start Date: 05/27/15 10:27:00 CDT Start Date: 05/27/15 Stop Date: 08/18/15 Status: DiscontinuedVyvanse 40 mg oral capsule 1 cap(s), Oral, qAM, 0 Refill(s), Start Date: 07/14/16 13:24:00 CORONER'S JUROR Start Date: 07/14/16 Status: OrderedWellbutrin XL 150 mg/24 hours oral tablet, extended release tab(s), Oral, q24hr interval, 0 Refill(s) Start Date: 02/25/14 Stop Date: 02/05/15 Status: CompletedZofran 4 mg oral tablet 1 tab(s), Oral, q8hr, PRN nausea/vomiting, # 10 tab(s), 1 Refill(s), Start Date : 09/25/15 13:09:00 CORONER'S JUROR, Pharmacy: [id number] Start Date: 09/25/15 Stop Date: 10/16/15 Status: DiscontinuedZofran 4 mg oral tablet 1 tab(s), Oral, q8hr interval, PRN nausea/vomiting, # 8 Tab-Dis, 0 Refill(s), Start Date: 09/15/15 11:45:00 CORONER'S JUROR, Pharmacy: [id number] Start Date: 09/15/15 Stop Date: 10/16/15 Status: [...] ablation (endometriosis) 2001 1auto-populated from documented surgical [id number] from documented surgical [id number] from documented surgical [id number] from documented surgical [id number] A) CERVICAL BIOPSY: MILD DYSPLASIA WITH HUMAN [...]
--- OUTSIDE RECORDS SUMMARY | 2016-10-07 21:52 | XMS REPORT | Summary of Care ---
:1980 Author Organization [facility] Address [address] [place] [address] [address] [place] [address] Care Team Providers Name Role Phone Lisha Hung Primary Care Physician Encounter Date(s): 09/17/16 - 09/17/16 [facility] [address] [place] [address] [address] [place] [address]- Discharge Diagnosis: Epigastric abdominal pain Discharge Disposition: 01 Discharged to Home or Self Care Attending Physician: MAKAYLA Mccullough Referring Physician: MAKAYLA Mccullough Vital Signs Most recent to oldest [Reference Range]: 1 Peripheral Pulse Rate [60-100 bpm] 124 bpm *HI* (09/17/16 1:07 PM) Blood Pressure [90-130/60-90 mmHg] 117/76mmHg (09/17/16 1:07 PM) Mean Arterial Pressure, Cuff 90 mmHg (09/17/16 1:07 PM) Most recent to oldest [Reference Range]: 1 Height/Length Measured 154.1 cm (09/17/16 1:07 PM) Height/Length Estimated 154.1 cm (09/17/16 1:07 PM) Weight Estimated 44.6 kg (09/17/16 1:07 PM) Weight Dosing 44.6 kg (09/17/16 1:07 PM) Weight Measured 44.6 kg (09/17/16 1:07 PM) BSA Measured 1.39 m2 (09/17/16 1:07 PM) BSA Estimated 1.38 m2 (09/17/16 1:07 PM) Body Mass Index Measured 18.78 kg/m2 (09/17/16 1:07 PM) Body Mass Index Estimated 18.78 kg/m2 (09/17/16 1:07 PM) Problem List Condition Effective Dates Status [...] BID, 0 Refill(s), Start Date: 07/14/16 13:25:00 MEDIA LIAISON OFFICER Start Date: 07/14/16 Status: Orderedalbuterol HFA 2 [...] 1 Refill(s), Start Date : 08/18/16 13:33:00 MEDIA LIAISON OFFICER, [place] Special Instructions: on an empty stomach Start Date: 08/18/16 Status: OrderedCeleXA 20 mg oral tablet 1 tab(s), Oral, Daily, # 90 tab(s), 0 Refill(s), Start Date: 02/05/15 9:42:00 CDT Start Date: 02/05/15 Status: OrderedClaritin 10 mg, Oral, Daily Start Date: 02/25/14 Stop Date: 08/18/15 Status: Discontinueddextroamphetamine-amphetamine 30 mg oral tablet 1 tab(s), Oral, BID, 0 Refill(s), Start Date: 06/12/15 13:47:00 MEDIA LIAISON OFFICER Start Date: 06/12/15 Stop Date: 12/15/15 Status: Discontinueddicyclomine 20 mg oral tablet 1 tab(s), Oral, QID, Can be taken 30 to 60 minutes before meals, # 60 tab(s), 0 Refill(s), Start Date: 09/17/16 13:44:00 MEDIA LIAISON OFFICER, [facility] [place] Special Instructions: Can be taken 30 to 60 minutes before meals Start Date: 09/17/16 Status: OrderedEffexor XR 75 mg oral capsule, extended release 1 cap(s), Oral, Daily, 0 Refill(s), Start Date: 09/23/14 8:35:00 MEDIA LIAISON OFFICER Start Date: 09/23/14 Stop Date: 02/05/15 Status: Completedfamotidine 40 mg oral tablet 1 tab(s), Oral, BID, # 60 tab(s), 1 Refill(s), Start Date: 08/18/16 13:34:00 MEDIA LIAISON OFFICER , [facility] [place] [place] Start Date: 08/18/16 Status: OrderedFlagyl 250 mg oral tablet 1 tab(s), Oral, TID, do not drink alcohol may take with food to minimize abdominal discomfort, # 42 tab(s), 0 Refill(s), Start Date: 07/14/16 13:32:00 MEDIA LIAISON OFFICER, [facility] [place] [place] Special Instructions: do not drink alcohol may take with food to minimize abdominal discomfort Start Date: 07/14/16 Stop Date: 09/17/16 Status: CompletedFlonase 50 mcg/inh nasal spray 1 spray(s), Nasal, Daily Start Date: 02/25/14 Stop Date: 06/11/15 Status: DiscontinuedFlorastor 250 mg oral capsule 2 cap(s), Oral, BID, # 56 cap(s), 0 Refill(s), Start Date: 08/21/15 14:57:00 MEDIA LIAISON OFFICER , Pharmacy: [facility] [id number] Start Date: 08/21/15 Stop Date: 09/15/15 Status: Completedgabapentin 300 mg oral capsule 1 cap(s), Oral, TID Start Date: 02/25/14 Stop Date: 02/05/15 Status: Completedibuprofen 600 mg oral tablet 1 tab(s), Oral, q6hr, # 16 tab(s), 2 Refill(s), Start Date: 11/02/15 9:03:00 CDT , Pharmacy: [facility] [id number] Start Date: 11/02/15 Status: OrderedLevaquin 750 mg oral tablet 1 tab(s), Oral, Daily, # 14 tab(s), 0 Refill(s), Start Date: 07/14/16 13:24:00 MEDIA LIAISON OFFICER Start Date: 07/14/16 Stop Date: 09/17/16 Status: CompletedLORazepam 0.5 mg oral tablet 2 tab(s), Oral, HS, 0 Refill(s), Start Date: 07/14/16 13:26:00 MEDIA LIAISON OFFICER Start Date: 07/14/16 Status: Orderedmethadone 10 mg oral tablet 1 tab(s), Oral, q12hr, # 14 tab(s), 0 Refill(s), Start Date: 06/27/15 9:27:00 MEDIA LIAISON OFFICER, other reason (Rx) Start Date: 06/27/15 Stop Date: 08/18/15 Status: Completedmetoclopramide 10 mg oral tablet 1 tab(s), Oral, QID, # 120 tab(s), 0 Refill(s), Start Date: 08/14/15 15:28:00 MEDIA LIAISON OFFICER Start Date: 08/14/15 Stop Date: 08/21/15 Status: DiscontinuedmetroNIDAZOLE 500 mg oral tablet 1 tab(s), Oral, TID, 0 Refill(s), Start Date: 08/18/15 17:01:00 MEDIA LIAISON OFFICER Start Date: 08/18/15 Stop Date: 08/21/15 Status: DiscontinuedMultiple Vitamins oral tablet 1 tab(s), Oral, Daily, with food Special Instructions: with food Start Date: 02/25/14 Stop Date: 02/05/15 Status: CompletedNorco 5 mg-325 mg oral tablet See Instructions, 1tab(s) Oral q4-6hr interval prn pain. WRITTEN RX, PT TO POLYSOMNOGRAPHY TECHNICIAN//JMP, # 90 tab(s), 0 Refill(s), Start Date: 07/28/15 9:12:00 MEDIA LIAISON OFFICER Special Instructions: 1tab(s) Oral q4-6hr interval prn pain. WRITTEN RX, PT TO POLYSOMNOGRAPHY TECHNICIAN//JMP Start Date: 07/28/15 Stop Date: 08/18/15 Status: Completednortriptyline 10 mg oral capsule 2 cap(s), Oral, HS Start Date: 02/25/14 Stop Date: 02/05/15 Status: Completedomeprazole 40 mg oral delayed release capsule 1 cap(s), Oral, Daily, # 30 cap(s), 1 Refill(s), Start Date: 09/17/16 13:43:00 MEDIA LIAISON OFFICER, Pharmacy: [place], [place] Start Date: 09/17/16 Status: Orderedomeprazole 40 mg oral delayed release capsule 1 cap(s), Oral, Daily, before a meal Special Instructions: before a meal Start Date: 02/25/14 Stop Date: 08/18/15 Status: CompletedOrtho Tri-Cyclen oral tablet 1 tab(s), Oral, Daily, # 28 tab(s), 11 Refill(s), Start Date: 09/23/14 8:50:32 MEDIA LIAISON OFFICER, Pharmacy: [id number] Start Date: 09/23/14 Stop Date: 10/28/15 Status: DiscontinuedOrtho Tri-Cyclen oral tablet 1 tab(s), Oral, Daily, # 28 tab(s), 6 Refill(s), Pharmacy: [id number] Start Date: 02/25/14 Stop Date: 09/23/14 Status: DiscontinuedoxyCODONE-acetaminophen 5 mg-325 mg oral tablet See Instructions, 1 tab(s) Oral q4-6hr interval Max 7 per day, # 90 tab(s), 0 Refill(s), Start Date: 06/27/15 9:28:00 MEDIA LIAISON OFFICER, other reason (Rx) Special Instructions: 1 tab(s) [...] QID, 0 Refill(s), Start Date: 08/18/15 16:59:00 MEDIA LIAISON OFFICER Start Date: 08/18/15 Stop Date: 09/15/15 Status: CompletedPercocet 5/325 oral tablet 1 tab(s), Oral, QID, # 90 tab(s), 0 Refill(s), Start Date: 09/09/15 11:26:00 MEDIA LIAISON OFFICER , other reason (Rx) Start Date: 09/09/15 Stop Date: 09/26/15 Status: CompletedPercocet 5/325 oral tablet 1 tab(s), Oral, q6hr interval, PRN pain moderate 4-7, # 24 tab(s), 0 Refill(s), Start Date: 11/05/15 11:38:54 CDT, Pharmacy: [facility] [id number] Start Date: 11/05/15 Stop Date: 11/09/15 Status: CompletedPercocet 5/325 oral tablet 1 tab(s), Oral, QID, Written Rx for pt to cotton picker//jmp,packing house laborer, # 90 tab(s), 0 Refill(s), Start Date: 09/26/15 12:54:36 MEDIA LIAISON OFFICER Special Instructions: Written Rx for pt to cotton picker//jmp,packing house laborer Start Date: 09/26/15 Stop Date: 10/16/15 Status: DiscontinuedPercocet 5/325 oral tablet 1 tab(s), Oral, q6hr interval, PRN pain moderate 4-7, # 16 tab(s), 0 Refill(s), Start Date: 11/02/15 9:03:00 CDT, Pharmacy: [facility] [id number] Start Date: 11/02/15 Stop Date: 11/05/15 Status: DiscontinuedPhenergan 25 mg oral tablet 1 tab(s), Oral, q4hr, PRN for nausea/vomiting, # 20 tab(s), 0 Refill(s), Start Date: 08/21/15 14:58:00 MEDIA LIAISON OFFICER, Pharmacy: [facility] [id number] Start Date: 08/21/15 Stop Date: 09/15/15 Status: Completedpotassium chloride 10 mEq oral capsule, extended release 1 cap(s), Oral, BID, # 180 cap(s), 0 Refill(s), Start Date: 08/18/15 17:01:00 MEDIA LIAISON OFFICER Start Date: 08/18/15 Stop Date: 09/15/15 Status: Completedpotassium chloride 10 mEq oral tablet, extended release 1 tab(s), Oral, BID, # 180 tab(s), 0 Refill(s), Start Date: 08/18/15 21:44:00 MEDIA LIAISON OFFICER Start Date: 08/18/15 Stop Date: 08/21/15 Status: DiscontinuedReadi-Cat 2 oral suspension See Instructions, Oral ONETIME, # 2 bottles, 0 Refill(s), Start Date: 09/17/16 13:57:00 MEDIA LIAISON OFFICER, Pharmacy: [facility] Special Instructions: Oral ONETIME Start Date: 09/17/16 Status: OrderedSingulair qPM, 0 Refill(s) Start Date: 02/25/14 Stop Date: 06/11/15 Status: DiscontinuedSuprep Bowel Prep Kit oral liquid 1 bottles, Oral, BID, Mix 1 btl to 16oz water and drink. Next morning; repeat use second btl. Complete at least 1 hr before colonscopy., # 1 kit(s), 0 Refill (s), Start Date: 08/14/15 15:51:00 MEDIA LIAISON OFFICER, Pharmacy: [facility] [id number] Special Instructions: Mix 1 btl to 16oz water and drink. Next morning; repeat use second btl. Complete at least 1 hr before colonscopy. Start Date: 08/14/15 Stop Date: 08/18/15 Status: CompletedtraZODone 50 mg oral tablet 1 tab(s), Oral, HS, # 60 tab(s), 1 Refill(s), Pharmacy: [id number] Start Date: 11/29/13 Stop [...] cap(s), 0 Refill(s), Start Date: 08/21/15 14:57:00 MEDIA LIAISON OFFICER , Pharmacy: [facility] [id number] Start Date: 08/21/15 Stop Date: 08/22/15 Status: Discontinuedvancomycin 125 mg oral capsule 1 cap(s), Oral, q6hr, # 40 cap(s), 0 Refill(s), Start Date: 08/21/15 10:49:00 MEDIA LIAISON OFFICER, [facility] [id number] Start Date: 08/21/15 Stop Date: 09/15/15 Status: CompletedVentolin HFA 2 puff(s), Inhale, q6hr interval, 0 Refill(s), Start Date: 07/14/16 13:27:00 MEDIA LIAISON OFFICER Start Date: 07/14/16 Status: OrderedVyvanse 70 mg, Oral, qAM, 0 Refill(s), Start Date: 05/27/15 10:27:00 CDT Start Date: 05/27/15 Stop Date: 08/18/15 Status: DiscontinuedVyvanse 40 mg oral capsule 1 cap(s), Oral, qAM, 0 Refill(s), Start Date: 07/14/16 13:24:00 MEDIA LIAISON OFFICER Start Date: 07/14/16 Status: OrderedWellbutrin XL 150 mg/24 hours oral tablet, extended release tab(s), Oral, q24hr interval, 0 Refill(s) Start Date: 02/25/14 Stop Date: 02/05/15 Status: CompletedZofran 4 mg oral tablet 1 tab(s), Oral, q8hr, PRN nausea/vomiting, # 10 tab(s), 1 Refill(s), Start Date : 09/25/15 13:09:00 MEDIA LIAISON OFFICER, Pharmacy: [facility] [id number] Start Date: 09/25/15 Stop Date: 10/16/15 Status: DiscontinuedZofran 4 mg oral tablet 1 tab(s), Oral, q8hr interval, PRN nausea/vomiting, # 8 Tab-Dis, 0 Refill(s), Start Date: 09/15/15 11:45:00 MEDIA LIAISON OFFICER, Pharmacy: [facility] [id number] Start Date: 09/15/15 Stop Date: 10/16/15 Status: Discontinued Results No data available for this section Immunizations Vaccine Date Refusal Reason human papillomavirus [...] ablation (endometriosis) 2001 1auto-populated from documented surgical [id number] from documented surgical [id number] from documented surgical [id number] from documented surgical [id number] A) CERVICAL BIOPSY: MILD DYSPLASIA WITH HUMAN [...]
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
[2016-10-07 22:35] LABS: Amylase * 30 U/L (25-115); Lipase 173 U/L (73-393)
[2016-10-07] MEDS ORDERED: FAMOTIDINE 20 MG TABLET PO ONE (23:40)
[2016-10-07] MEDS ORDERED: FAMOTIDINE 20 MG TABLET ONE ×2 (23:42→23:44)
[2016-10-07 23:47] VITALS: BP 111/69
== END 2016-10-07 23:51 | disposition home or self-care (01) ==
LOC: ER 21:13
DX: K29.60 Other gastritis without bleeding (principal); K21.9 Gastro-esophageal reflux disease without esophagitis; F90.9 Attention-deficit hyperactivity disorder, unspecified type; F17.210 Nicotine dependence, cigarettes, uncomplicated

== ENCOUNTER 2016-12-11 22:59 | Emergency (ER) | payer BC ==
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
[2016-12-11 23:25] LABS: Hematocrit 35.8 % (37.0-47.0); Hemoglobin 12.5 gm/dL (12.5-16.0); Mean Cell Volume 90.6 fl (78-100); Mean Corpuscular Hemoglobin 31.6 pg (27-31); Mean Corpuscular Hgb Conc 34.9 g/dl (32-36); Mean Platelet Volume 9.3 fl (6.0-9.5); Neutrophil # 3.6 K/mm3 (1.3-6.0); Platelet Count 293 K/mm3 (150-450); Red Blood Count 3.95 M/mm3 (4.2-5.4); Red Cell Distribution Width 12.2 % (11.5-14.0)
[2016-12-11 23:38] LABS: Albumin * 3.7 gm/dl (3.4-5.0); Anion Gap 17.9 mmol/L (6.8-13.8); BUN/Creatinine Ratio 15.7 (9.0-21.6); Bilirubin, Total 0.2 mg/dL (0.0-1.1); Calcium * 9.1 mg/dL (7.9-10.9); Carbon Dioxide 20.4 mmol/L (24-32.6); Potassium 3.3 mmol/L (3.4-4.6); Total Protein 6.7 gm/dL (6.2-8.2)
[2016-12-11 23:47] LABS: Cocaine Ur Negative (NEGATIVE); Urine Barbiturate Negative (NEGATIVE); Urine Benzodiazepines Negative (NEGATIVE); Urine Opiates Negative (NEGATIVE); Urine PCP Negative (NEGATIVE); Urine THC Negative (NEGATIVE)
[2016-12-11 23:48] LABS: Urine Bilirubin Negative (NEGATIVE); Urine Blood Negative /ul (NEGATIVE); Urine Ketone 5 mg/dL (NEGATIVE); Urine Nitrite Negative (NEGATIVE); Urine Protein 15 mg/dL (NEGATIVE); Urine Urobilinogen Normal (NORMAL); Urine pH 7.5 pH (5.0-7.0)
[2016-12-11 23:50] LABS: Urine Appearance Clear; Urine Color Dark Yellow; Urine RBC None Seen /hpf (0-5); Urine WBC None Seen /hpf (0-5)
[2016-12-11 23:51] LABS: Urine Amorphous Sediment Many - 3+ (NONE-FEW); Urine Bacteria TRACE; Urine Fine Granular Cast 0-5 /LPF
--- OUTSIDE RECORDS SUMMARY | 2016-12-12 00:05 | XMS REPORT | Continuity of Care Document ---
:1980 Author Organization [facility] ([facility]) Address [address] [place] [address] Phone [phone] Care Team Providers Name Role Phone Shannon Jackson Primary Care Provider [phone] Source Comments This disclosure is being made pursuant to the Care Everywhere program, applicable federal and state laws, and may not contain all informaitonavailable regarding this patient.[facility] ([facility]) Active Allergies and Adverse Reactions Allergen Noted Date Severity Reactions Comments Penicillins 06/03/2014 Urticaria (Hives),Rash Sulfa (Sulfonamide Antibiotics) 06/03/2014 Urticaria (Hives),Rash Current Medications Prescription Sig. Disp. Refills Start Date End Date Status zolpiDEM 10 mg tablet Take 10 mg by Active mouth at bedtime as needed. amitriptyline 25 mg Take 25-50 mg by Active tablet mouth at bedtime. gabapentin 300 mg Take 1,200 mg by Active capsule mouth daily. buPROPion (WELLBUTRIN Take 150 mg by Active XL) 300 mg extended mouth 2 times release tablet 24 hour daily. OMEPRAZOLE (PRILOSEC PO) Take 40 mg by Active mouth daily. ferrous sulfate (Iron) Take 325 mg by Active 325 mg (65 mg iron) mouth daily. tablet loratadine 10 mg tablet Take 10 mg by Active mouth daily. CALCIUM Take 1 Tab by Active CARBONATE/VITAMIN D3 mouth 2 times (CALCIUM 600 + D,3, PO) daily. MULTIVIT WITH Take by mouth. Active CALCIUM,IRON,MIN (WOMEN'S MULTIPLE VITAMINS PO) HYDROcodone-acetaminophe Take 1-2 tablets 10 tablet 0 10/20/2016 Active n 5-325 mg per tablet by mouth every 6 hours as needed. ondansetron 4 mg Take 1 tablet (4 6 tablet 0 10/20/2016 Active disintegrating tablet mg total) by mouth every 6 hours as needed. 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 Pulse 110 10/20/2016 3:49 AM CDT Temperature 37.6 C (99.7 F) 10/20/2016 3:49 AM CDT Respiratory Rate 18 10/20/2016 3:49 AM CDT Height 1.549 m (5' 0.98") 06/03/2014 2:00 PM STRATEGY MANAGER Weight 60.918 kg (134 lb 4.8 oz) 06/03/2014 2:00 PM STRATEGY MANAGER Body Mass Index 25.39 06/03/2014 2:00 PM STRATEGY MANAGER Oxygen Saturation 100% 10/20/2016 3:49 AM CDT Plan of Care Health Maintenance Due Date Last Done Comments Hepatitis B Vaccine (1 of 3 - Primary Series) 1982 Tdap Vaccine 1993 Lipid Disorder Screening 2000 MMR Vaccine 2000 Td Vaccine 2000 Varicella Vaccine (1 of 2 - Adult - No Evidence of 2000 Immunity) Pneumococcal Vaccine (1 of 1 - PPSV23) 2001 Cervical Cancer Screening 2012 Influenza Vaccine: Seasonal (Season Ended) 2017 Results from Last 3 Months DIFFERENTIAL (10/20/2016 4:52 AM) Component Value Range % Neutrophils-Auto Diff 42.5 % Neutrophils-Auto Diff 3710 4964-5845 /MM3 % Lymphocytes-Auto Diff 44.0 % Lymphocytes-Auto Diff 3840(H) 875-3300 /MM3 % Monocytes-Auto Diff 9.6 % Monocytes-Auto Diff 840 130-860 /MM3 % Eosinophils-Auto Diff 3.1 % Eosinophils-Auto Diff 270 40-390 /MM3 % Basophils 0.7 % Basophils-Auto Diff 60 10-136 /MM3 % Immature Granulocytes-Auto Diff 0.1 % Immature Granulocytes-Auto Diff 10 /MM3 Specimen Whole Blood CBC (COMPLETE BLOOD COUNT) (10/20/2016 4:52 AM) Component Value Range WBC Count 8.7 3.7-10.5 K/MM3 RBC Count 3.81(L) 4.00-5.20 M/MM3 Hemoglobin 12.1 11.9-15.5 g/dL Hematocrit 34(L) 35-47 % MCV (Mean Corpuscular Volume) 90 82-99 FL MCH (Mean Corpuscular Hemoglobin) 32 25-35 PG MCHC (Mean Corpuscular Hemoglobin Concentration) 35 32-36 % Platelet Count 278 150-400 K/MM3 MPV (Mean Platelet Volume) 9.5 9.4-12.3 FL RBC Dist Width-STD 41.5 36.4-46.3 FL RBC Distrib Width 12.4 9.0-14.5 % Nucleated RBC 0 /100 WBC Specimen Whole Blood LACTIC ACID, WHOLE BLOOD ([facility]) (10/20/2016 4:52 AM) Component Value Range Lactic Acid, Whole Blood 0.9Comment: 0.5-2.0 mEq/L Glycolate, the principle toxic metabolite of ethylene glycol, can cause artifactual elevation of measured lactate. Specimen Whole Blood AMYLASE (10/20/2016 4:52 AM) Component Value Range Amylase 22Comment: 0-100 U/L Amylase assay methodology and reference range changed 11/20/09. Specimen Blood LIPASE (10/20/2016 4:52 AM) Component Value Range Lipase 27 13-60 U/L Specimen Blood HEPATIC FUNCTION PANEL (10/20/2016 4:52 AM) Component Value Range Albumin 4.0 3.4-4.8 g/dL ALP 36 35-104 U/L Bilirubin Total 0.3 <=1.2 mg/dL Bilirubin, Direct <0.2 0.0-0.2 mg/dL AST 18 0-32 U/L ALT 9 0-33 U/L Total Protein 6.6 6.0-8.0 g/dL Specimen Blood BASIC METABOLIC PANEL W/ CALCIUM (CHEM 8) (10/20/2016 4:52 AM) Component Value Range Sodium 139 135-145 mEq/L Potassium 4.0 3.5-5.0 mEq/L Chloride 104 95-107 mEq/L CO2 22 22-29 mEq/L BUN 12 10-20 mg/dL Creatinine 0.8Comment: 0.5-1.0 mg/dL Creatinine switched to enzymatic method on 12/08/2010.GFR equation switched to IDMS-traceable MDRD equation on 12/08/2010. Calculated GFR values are not valid in clinical settings where serum creatinine is changing. Glucose 83Comment: 65-99 mg/dL The Expert Committee on the Diagnosis and Classification of Diabetes has defined impaired fasting glucose as greater than or equal to 100 mg/dL but less than 126 mg/dL.(Diabetes Care 28 (Suppl 1)S41,2005) Calcium 9.7 8.5-10.5 mg/dL Anion Gap 13 mEq/L Calculated GFR 82 >60 mL/min/1.73 m2 Specimen Blood CBC WITH DIFFERENTIAL (10/20/2016 4:52 AM) Specimen Whole Blood Narrative The following orders were created for panel order CBC WITH DIFFERENTIAL. Procedure Abnormality Status --------- ------ CBC (COMPLETE BLOOD COUNT)[[id number]] AbnormalFinal result DIFFERENTIAL[[id number]] AbnormalFinal result Please view results for these tests on the individual orders.
--- OUTSIDE RECORDS SUMMARY | 2016-12-12 00:05 | XMS REPORT | Continuity of Care Document ---
:1980 Author Organization [facility] [place] [address] Care Team Providers Name Role Phone Unavailable Primary Care Provider Unavailable Source Comments This disclosure is being made pursuant to the [employer] program and maynot contain all information available regarding this patient.[facility] Active Allergies and Adverse Reactions Not on [...]
[2016-12-12] MEDS ORDERED: NORMAL SALINE 1,000 ML IV ONE (01:33)
[2016-12-12] MEDS ORDERED: DIATRIZOATE MEGLU/DIATRIZO SOD 30 ML BTL ONE (01:33)
[2016-12-12] MEDS ORDERED: DIATRIZOATE MEGLU/DIATRIZO SOD 30 ML BTL PO ONE (01:37)
[2016-12-12] MEDS ORDERED: ONDANSETRON HCL/PF 2 MG/ML VIAL IV ONE (02:01)
[2016-12-12] MEDS ORDERED: ONDANSETRON HCL/PF 2 MG/ML VIAL ONE (02:02)
[2016-12-12 04:31] VITALS: BP 102/63
== END 2016-12-12 04:35 | disposition home or self-care (01) ==
LOC: ER 22:59
DX: R10.9 Unspecified abdominal pain (principal)

== ENCOUNTER 2017-04-10 20:38 | Emergency (ER) | payer BC, OTHER ==
[2017-04-10] MEDS ORDERED: KETOROLAC TROMETHAMINE 30 MG/ML VIAL IV ONE (21:12)
[2017-04-10] MEDS ORDERED: NORMAL SALINE 1,000 ML IV ONE (21:12)
[2017-04-10] MEDS ORDERED: KETOROLAC TROMETHAMINE 30 MG/ML VIAL ONE (21:18)
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
[2017-04-10 21:42] LABS: Hematocrit 31.9 % (37.0-47.0); Hemoglobin 11.1 gm/dL (12.5-16.0); Mean Cell Volume 91.9 fl (78-100); Mean Corpuscular Hgb Conc 34.8 g/dl (32-36); Mean Platelet Volume 9.2 fl (6.0-9.5); Neutrophil # 4.5 K/mm3 (1.3-6.0); Neutrophil % 54.5 % (42-75.0); Platelet Count 277 K/mm3 (150-450); Red Blood Count 3.47 M/mm3 (4.2-5.4); Red Cell Distribution Width 12.7 % (11.5-14.0); White Blood Count 8.3 K/mm3 (4.0-10.5)
[2017-04-10 21:44] LABS: ALT 12 U/L (19-67); AST 9 U/L (0-48); Alkaline Phosphatase * 35 U/L (50-170); Anion Gap 15.4 mmol/L (6.8-13.8); BUN/Creatinine Ratio 21.5 (9.0-21.6); Bilirubin, Total 0.2 mg/dL (0.0-1.1); Blood Urea Nitrogen 17 mg/dL (3-23); Ca. Corrected For Albumin 8.1 mg/dL (8.4-10.2); Calcium * 8.4 mg/dL (7.9-10.9); Carbon Dioxide 23.2 mmol/L (24-32.6); Chloride 103 mmol/L (97-106); Glucose * 102 mg/dL (70-110); Potassium 2.6 mmol/L (3.4-4.6); Sodium 139 mmol/L (132-142); Total Protein 7.2 gm/dL (6.2-8.2)
[2017-04-10 21:52] LABS: Urine Appearance Clear; Urine Bilirubin Negative (NEGATIVE); Urine Blood Negative /ul (NEGATIVE); Urine Color Yellow; Urine Ketone Negative (NEGATIVE)
[2017-04-10 21:53] LABS: Urine Nitrite Negative (NEGATIVE); Urine Protein Negative (NEGATIVE); Urine Urobilinogen Normal (NORMAL); Urine WBC 0-5 /hpf (0-5); Urine pH 5.5 pH (5.0-7.0)
[2017-04-10 21:54] LABS: Urine Bacteria None Seen; Urine RBC None Seen /hpf (0-5)
[2017-04-10] MEDS ORDERED: POTASSIUM CHLORIDE 20 MEQ TABLET.SA PO ONE (22:11)
[2017-04-10] MEDS ORDERED: POTASSIUM CHLORIDE 20 MEQ TABLET.SA ONE (22:18)
[2017-04-10 23:08] VITALS: BP 107/72
== END 2017-04-10 22:51 | disposition home or self-care (01) ==
LOC: ER 20:38
DX: R10.12 Left upper quadrant pain (principal); F17.200 Nicotine dependence, unspecified, uncomplicated

== ENCOUNTER 2017-05-02 14:15 | Emergency (ER) | payer OTHER ==
[2017-05-02] MEDS ORDERED: KETOROLAC TROMETHAMINE 60 MG/2 ML VIAL IM ONE ×2 (14:48→14:52)
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
[2017-05-02 16:15] VITALS: BP 127/80
== END 2017-05-02 16:51 | disposition home or self-care (01) ==
LOC: ER 14:15
DX: R10.9 Unspecified abdominal pain (principal); F17.200 Nicotine dependence, unspecified, uncomplicated